=== PATIENT | male | born 1950 | race Caucasian/White ===

== ENCOUNTER → 2023-09-10 10:48 | Outpatient (BNVA) | payer MEDICARE, OTHER, SELFPAY | PROVIDERS: PCP Nurse Practitioner Family; Referring Provider Nurse Practitioner Family; Visit Provider Student in an Organized Health Care Education/Training Program | DX: J84.2 Lymphoid interstitial pneumonia (principal); J43.2 Centrilobular emphysema; Z79.51 Long term (current) use of inhaled steroids; Z87.891 Personal history of nicotine dependence; Z99.81 Dependence on supplemental oxygen; J96.91 Respiratory failure, unspecified with hypoxia; G47.33 Obstructive sleep apnea (adult) (pediatric) | CPT/HCPCS: 99214 ==

== ENCOUNTER → 2024-03-16 12:32 | Outpatient (BNVA) | payer MEDICARE, OTHER, SELFPAY | PROVIDERS: PCP Nurse Practitioner Family; Referring Provider Nurse Practitioner Family; Visit Provider Physician Assistant Surgical | DX: J43.2 Centrilobular emphysema (principal); J84.2 Lymphoid interstitial pneumonia; J96.91 Respiratory failure, unspecified with hypoxia; G47.33 Obstructive sleep apnea (adult) (pediatric); Z87.891 Personal history of nicotine dependence | CPT/HCPCS: 99214 ==

== ENCOUNTER → 2025-05-18 09:20 | Outpatient (BNVA) | payer MEDICARE, OTHER, SELFPAY | PROVIDERS: PCP Nurse Practitioner Family; Referring Provider Nurse Practitioner Family; Visit Provider Physician Assistant Surgical | DX: I27.20 Pulmonary hypertension, unspecified (principal); J44.9 Chronic obstructive pulmonary disease, unspecified; J96.91 Respiratory failure, unspecified with hypoxia; J84.2 Lymphoid interstitial pneumonia; J43.9 Emphysema, unspecified; Z87.891 Personal history of nicotine dependence | CPT/HCPCS: 99214; G0296 ==